=== PATIENT | female | born 1950 | race Caucasian/White ===

== ENCOUNTER → 2018-07-04 | Outpatient (CLI) | payer MEDICARE ==
[~2018-07-04] VITALS: Ht 157.4 cm; Wt 106.6 kg
[~2018-07-04] MED LIST: BAYER WOMEN'S1 EACH PO; FENOFIBRATE160 MG PO; HYDROCHLOROTHIA50 M1 PO; SIMVASTATIN20 MG PO; TYLENOL325 M1 PO
--- NOTE | ~2018-07-04 | EKG ---
[place], [place] ELECTROCARDIOGRAM REPORT NAME: EUNICE CORREA UNIT #: [id number] ROOM: DOCTOR: SONAL DRAFT REPORT BIRTHDATE: [birth year] [facility] Test Date: 2018-07-04 Test Time: 08:21:49 Pat Name: EUNICE CORREA Department: Room: Gender: F Sprue Knocker: Sherrie Walters : 1950 Requested By: CLEMENTINE ESTRELLA Order Number: [id number] Reading MD: Hitesh Rosado MD Measurements Intervals [place] Rate: 98 P: GA: QRS: 31 QRSD: 91 T: -4 QT: 364 QTc: 465 Interpretive Statements Atrial fibrillation Low voltage, precordial leads Borderline T abnormalities, inferior leads Electronically Signed On 07-04-2018 19:42:00 PDT by Hitesh Rosado MD CM:EKGRPT:ELECTROCARDIOGRAM REPORT 08 41 CLEMENTINE PRUITT DRAFT REPORT CLEMENTINE ESTRELLA
== END ==
LOC: SDC 06-29 04:31 → EDSTATUS 06-29 14:00 → LAB 00:01 → SDC 00:01 → LAB 12:00
DX: H25.11 Age-related nuclear cataract, right eye (principal); I10 Essential (primary) hypertension; Z96.653 Presence of artificial knee joint, bilateral; Z98.890 Other specified postprocedural states; E66.01 Morbid (severe) obesity due to excess calories; Z68.41 Body mass index [BMI] 40.0-44.9, adult